=== PATIENT | male | born 1950 | race Caucasian/White ===

== ENCOUNTER → 2017-02-06 10:22 | Outpatient (CLI) | payer MEDICARE, OTHER ==
[2015-07-08 08:33] VITALS: BMI 32.8
[~2017-02-06 10:22] MED LIST: BAYER CHEWABLE81 MG PO; LIPITOR20 MG PO; MOBIC7.5 MG PO; MULTI-DAY VITAM1 TAB PO; SOMA350 MG PO; ULTRAM50 MG PO
== END | disposition home or self-care (01) ==
LOC: D.RAD 10:22
DX: M25.512 Pain in left shoulder (principal)

== ENCOUNTER 2017-03-08 05:30 | Day surgery (SDC) | payer MEDICARE, OTHER ==
[2017-03-07 11:40] LABS: HEMATOCRIT 47.9 % (42.0-54.0); HEMOGLOBIN 16.4 g/dL (13.5-17.5); MCH 32.9 pg (26.0-34.0); MCHC 34.2 g/dL (31.0-37.0); MEAN PLATELET VOLUME 11.1 fL (7.4-10.4); RBC 4.99 10x6/uL (4.20-6.10); RDW 13.1 % (11.5-14.5); WBC 7.2 10x3/uL (4.8-10.8)
[2017-03-07 11:58] LABS: ANION GAP 12.2 mmol/L (8-16); CALCIUM 9.6 mg/dL (8.5-10.1); CREATININE - SERUM 1.4 mg/dL (0.6-1.3); POTASSIUM - SERUM 4.2 mmol/L (3.5-5.1)
[~2017-03-08] VITALS: Ht 180.3 cm; Wt 98.9 kg
[~2017-03-08 05:30] MED LIST changes: +GLUCOPHAGE850 MG PO; +ROBAXIN500 MG PO; +TESTOSTERON200 MG/ML IM
[2017-03-08] MEDS ORDERED: ULTRAM50 MG PO (06:56)
[2017-03-08] MEDS ORDERED: HYDROCODONE-APA1 TAB PO (06:57)
[2017-03-08 07:00] VITALS: BP 150/96; Ht 180.3 cm; Wt 98.9 kg
--- NOTE | 2017-03-08 11:33 | NUR ---
1045 IV DC WITH CATHER TIP INTACT,W/O REDNESS AT SITE
--- NOTE | 2017-03-09 10:59 | OP ---
PATIENT NAME: NICA OHARA MEDICAL RECORD: [id number] :50 LOCATION:[facility] ADMISSION DATE: SURGEON: PAULINO NEW, TANA ANDERSON DATE OF OPERATION: 03/08/2017 PREOPERATIVE DIAGNOSES: Rotator cuff tear of the left shoulder with impingement syndrome of the left shoulder, clavicular arthritis of the left shoulder. POSTOPERATIVE DIAGNOSES: Rotator cuff tear of the left shoulder with impingement syndrome of the left shoulder, clavicular arthritis of the left shoulder. PROCEDURE: 1. Left shoulder arthroscopy with arthroscopic rotator cuff repair. 2. Arthroscopic distal clavicle excision. 3. Arthroscopic subacromial decompression, acromioplasty and bursectomy. SURGEON: Tana Bob MD ANESTHESIA: General. INTRAOPERATIVE COMPLICATIONS: None. SUMMARY OF PATHOLOGIC FINDINGS: Consistent with the preoperative MRI. The patient had full thickness rotator cuff tear, biceps tendinitis and acromioclavicular arthritis and a type 3 acromion with impingement excoriation of the coracoacromial ligament. OPERATIVE SUMMARY IN DETAIL: After obtaining the appropriate preoperative orthopedic surgery consent as well as anesthetic consultation, evaluation and clearance, the patient was brought to the operating room and placed on the operating table in supine position. After general laryngeal mask was administered, the patient was placed in a right lateral decubitus position. All pressure points were well padded to include down leg peroneal pad as well as axillary roll. The patient was held firmly to the operating room table using the vacuum pack suction system. Left upper extremity and shoulder were then prepped and draped in routine sterile fashion. The arm was held in the Arthrex traction boom at 30 degrees of forward flexion, 30 degrees of abduction, 10 pounds of traction laterally. Arthroscopy was established in the glenohumeral joint from a posterior portal. Anterior portal was established in the anterior safe interval. Diagnostic arthroscopy did reveal the above findings. Attention was turned to the subacromial space. [place] tissue ablation system was utilized to denude the undersurface of the acromion of all soft tissue elements and released coracoacromial ligament. A 5-0 barrel bur was used to perform acromioplasty at the level of acromioclavicular joint through a separate arthroscopic. Anterior portal, distal clavicle was excised for 1 cm. Having completed this, attention was turned to the rotator cuff tear. The area in the supraspinatus tendinous footprint on the greater tuberosity was decorticated slightly. A single #2 inverted FiberTape was passed and anchored laterally with a 5.5 SwiveLock from Arthrex. Having completed this, arthroscopy portals were closed in routine interrupted fashion using 4-0 Prolene. Sterile dressings were applied. The patient was awakened, taken to recovery in stable condition. All final needle and sponge counts were correct. TRANSINT:[id number] Voice Confirmation ID: [id number] DOCUMENT ID: [id number] OPERATIVE REPORT [id number] NICA OHARA MD, TANA ANDERSON at 1059 CC: [id number] DICTATION DATE: 03/08/17 0940 MANAGER POKER: 03/08/17 1050 [facility] 03/08/17 [facility] [address] [place] [address]
== END 2017-03-08 11:30 | disposition home or self-care (01) ==
LOC: D.OPS 05:30 → D.PAN 13:30 → D.OPS 13:45 → D.PAN 13:45
PROVIDERS: Anesthesiology
DX: M75.102 Unspecified rotator cuff tear or rupture of left shoulder, not specified as traumatic (principal); M75.42 Impingement syndrome of left shoulder; M19.012 Primary osteoarthritis, left shoulder; E11.9 Type 2 diabetes mellitus without complications; Z01.812 Encounter for preprocedural laboratory examination

== ENCOUNTER 2019-01-01 20:37 | Inpatient (IN) | payer MEDICARE ==
[~2019-01-01] VITALS: Ht 180.3 cm; Wt 100.0 kg
--- NOTE | ~2019-01-01 | EC ---
PATIENT:NICA OHARA DATE OF SERVICE: 01/01/19 SEX: M MEDICAL RECORD: [id number] DATE OF : 50 LOCATION:D.M2 D.212 AGE OF PATIENT: 68 ADMISSION DATE: 01/01/19 REFERRING PHYSICIAN: INTERPRETING PHYSICIAN: FRANCY NAYLOR MD ECHOCARDIOGRAM REPORT ECHO CHARGES 4 ECHO COMPLETE Date: 01/02/19 CLINICAL DIAGNOSIS: [place] ECHOCARDIOGRAPHIC MEASUREMENTS (adult normal given) AC root (d.<3.7cm) 4.0 cm LV Septum d (<1.2 cm> 1.4 cm Valve Excursion 2.0 cm LV Septum (systole) 2.3 cm Left Atria (s.<4.0cm> 2.7 cm LVPW d(<1.2cm) 1.3 cm RV (d.<2.3cm) 2.0 cm LVPW (sytole) 2.3 cm LV diastole(<5.6CM) 5.0 cm MV E-F(>70mm/sec) cm LV systole 2.2 cm LVOT Diameter 2.0 cm MV exc.(>10mm) cm Est.ejection fraction (50-75%) % DOPPLER: LVIT cm/sec A 100 cm/sec E 90.0 cm/sec LA cm/sec RVSP 18.0 mmHg LVOT 120 cm/sec AOP1/2T m/s Asc. Ao 134 cm/sec RVOT 104 cm/sec RA cm/sec PA 83.0 cm/sec AV Gradient Peak 7.2 mmHg AV Mean 3.6 mmHg AV Area 3.0 cm MV Gradient Peak 4.9 mmHg MV Mean 2.0 mmHg MV Area cm COMMENTS: Yarder Boss: Krunal VILLANUEVAOE Strip Feeder: 1 Dr. Naylor TAPE# PACS Pericardial Effusion N DATE OF SERVICE: 01/02/2019 PROCEDURE: Echocardiogram. FINDINGS: 1. Left ventricular chamber size is within normal limits. Left ventricular systolic function is normal. Overall ejection fraction estimated at 60%. 2. Left atrium, right atrium, right ventricle chamber size is within normal limits. 3. Valvular structures have normal structure and motion. ECHOCARDIOGRAM REPORT [id number] NICA OHARA 4. Doppler interrogation reveals no significant valvular insufficiency or stenosis. 5. No evidence of pericardial effusion or left ventricular thrombus. TRANSINT:[id number] Voice Confirmation ID: [id number] DOCUMENT ID: [id number] FRANCY NAYLOR MD CC: [id number] DICTATION DATE: 01/03/19823 HOISTER: 01/03/19836 ADM IN [facility] [address] [id number]
--- NOTE | ~2019-01-01 | OP ---
PATIENT NAME: NICA OHARA MEDICAL RECORD: [id number] :50 LOCATION:D.M2 D.0 ADMISSION DATE:01/01/19 SURGEON: FRANCY TORO MD DATE OF OPERATION: 01/02/2019 PROCEDURES: 1. PTCA and stent, LAD. 2. Left heart catheterization. 3. Selective coronary angiography. 4. Left ventriculogram. INDICATION: Non-Q-wave myocardial infarction. PROCEDURE IN DETAIL: After informed consent was obtained with detailed description of risks and benefits as well as alternative therapies, the patient elected to proceed with angiogram and angioplasty. The right radial area was prepped and draped in normal sterile fashion. The right radial artery was cannulated via modified Seldinger technique with placement of 6-[place] sheath. All catheters were exchanged through this sheath. FINDINGS: Left ventriculogram performed in standard 30-degree JENKINS view reveals preserved cardiac wall motion. Ejection fraction is 50%. SELECTIVE CORONARY ANGIOGRAPHY: 1. Left main is with no significant angiographic disease. 2. Left circumflex has 85% to 90% stenosis proximally. 3. Left anterior descending has multiple areas of 99% stenosis throughout the entire mid vessel. 4. Right coronary has 90% to 95% stenosis times 2 distally. At this point, we consulted Dr. Gilbert. He agreed that the LAD was the culprit vessel for the non-Q-wave myocardial infarction, but did not think it was bypassable secondary to the extensive nature of the disease and the distal extension of the disease, hence PTCA and stent would be the best option if possible. We were able to traverse the areas of stenosis with a Fielder wire and ballooned it with 1.5 and 2.0 balloons. Stenting was undertaken distal to proximal with 2.0 x 26 [place], 2.0 x 26 [place], and 2.25 x 38 [place]. Result was 0% residual stenosis. OVERALL IMPRESSION: Successful PTCA and stents of the LAD, going from 99% initial stenosis in multiple areas to 0% residual stenosis. TRANSINT:[id number] Voice Confirmation ID: [id number] DOCUMENT ID: [id number] FRANCY TORO MD CC: [id number] DICTATION DATE: 01/02/19 1220 SKIN CARE CONSULTANT: 01/02/19 1500 [place] [address]
--- NOTE | ~2019-01-01 | HEMODYNAMI ---
PATIENT:NICA OHARA MEDICAL RECORD: [id number] : 50 LOCATION:[facility] D.2120 ADMISSION DATE: 01/01/19 Generatedon:01/02/201912:16 Patient name: NICA OHARA Patient #: [id number] SSN: : 1950 Date of study: 01/02/2019 Page: Of Hemodynamic Procedure Report Patient Data Patient Demographics Procedure consent was obtained First Name: NICA Gender: Male Last Name: LEV : 1950 [facility] Initial: L Age: 68 year(s) Patient #: [id number] Race: Unknown Additional ID: [id number] Contact details Address: [address] [place] [address] ROAD State: [place] City: [place] Zip code: [address] Past Medical History Allergies Allergen Reaction Date Comments Reported Other allergy 01/02/2019 IODINATED CONTRAST Admission Admission Data Admission Date: 01/01/2019 Admission Time: 22:42 Room #: .[facility]0 Weight (lbs.): 220.46 Weight (kg.): 100 Lab Results Lab Result Date: 01/02/2019 Lab Result Time: 0:00 Biochemistry Name Units Result Min Max BUN mg/dl 37 --(----)-* 7 18 Creatinine mg/dl 2.4 --(----)-* 0.6 1.3 eGFR ml/min 29 *-(----)-- 90 120 NONAFRICAN CBC Name Units Result Min Max Hematocrit % 38.4 *-(----)-- 42 54 Hemoglobin g/dl 13 -*(----)-- 13.5 17.5 Procedure Procedure Types Cath Procedure Diagnostic Procedure C [facility] w/Coronaries PCI Procedure Coronary Stent Coronary Stent Initial Procedure Description Procedure Date Procedure Date: 01/02/2019 Procedure Start Time: 11:39 Procedure End Time: 12:14 Procedure Staff Name Function Noble Naylor MD Performing Physician Rico Tapia RT Monitor Zarina Jones RT Scrub Pierce Gardner RN Nurse Procedure Data Cath Procedure Fluoroscopy Diagnostic fluoroscopy Total fluoroscopy Time: time: 13.3 min 13.3 min Diagnostic fluoroscopy Total fluoroscopy dose: dose: 2040 mGy 2040 mGy Contrast Material Contrast Material Type Amount (ml) Isovue 370 159 Entry Location Entry Primary Successful Side Size Upsize Upsize Entry Closure Vasquez ccessful Closure Location (Fr) 1 (Fr) 2 (Fr) Remarks Device Remarks Radial Right 6 Fr Mechanical artery Short Compression Estimated blood loss: 10 ml Diagnostic catheters Device Type Used For End Catheter Placement DIAGNOSTIC Carney 110cm 5 Procedure Fr catheter ([id number]) Procedure Complications No complications Procedure Medications Medication Administration Route Dosage Oxygen etCO2 Nasal cannula 2 l/min Lidocaine 2% added to field 20 Heparin Flush Bag added to field 2 bags (1000units/500ml NS) 0.9% NaCl I.V. 100 ml/hr Radial Cocktail I.A. 1 syringe (Verapamil 2mg/Nitro 400mcg/Heparin 1500units) Versed I.V. 1 mg Fentanyl I.V. 50 mcg Versed I.V. 1 mg Fentanyl I.V. 50 mcg Heparin Bolus I.V. 4000 units Versed I.V. 1 mg Versed I.V. 1 mg Versed I.V. 1 mg Fentanyl I.V. 50 mcg Versed I.V. 1 mg Plavix P.O. 75 mg Hemodynamics Rest Heart Rate: 71 (bpm) Pressure Samples Time Site Value (mmHg) Purpose Heart Use Rate(bpm) 11:42 AO 99/67(84) Snapshot 83 Snapshots Pre Cath Intra NCS Post Cath Vital Signs Time Heart Resp SPO2 etCO2 NIBP (mmHg) Rhythm Pain Sedation Rate (ipm) (%) (mmHg) Status Level (bpm) 11:35:01 68 13 99 30.7 186/115(163) NSR 0 (11) 10(A) , No pain 11:39:21 81 16 96 24 185/115(139) NSR 0 (11) 10(A) , No pain 11:43:46 82 10 95 9.7 135/81(105) NSR 0 (11) 10(A) , No pain 11:47:49 79 12 95 16.5 151/90(113) NSR 0 (11) 9(A) , No pain 11:51:59 80 15 96 0 158/87(124) NSR 0 (11) 9(A) , No pain 11:56:11 79 11 96 18.7 155/92(129) NSR 0 (11) 9(A) , No pain 12:00:21 80 17 96 30.7 160/98(137) NSR 0 (11) 9(A) , No pain 12:04:33 81 17 98 29.2 166/100(124) NSR 0 (11) 9(A) , No pain 12:08:47 82 15 97 32.2 170/95(139) NSR 0 (11) 9(A) , No pain 12:13:03 81 14 97 18.7 164/98(121) NSR 0 (11) 10(A) , No pain Medications Time Medication Route Dose Verified Delivered Reason Not es Effectiveness by by 11:33:31 Oxygen etCO2 2 l/min Noble Clevelandie used for Nasal Cyndy Gardner RN procedure cannula 11:33:37 Lidocaine 2% added 20ml Noblestacey Dickey for local to vial Cyndy Naylor MD anesthetic field 11:33:44 Heparin Flush added 2 bags Noble Dickey used for Bag to Cyndy Naylor MD procedure (1000units/500ml field NS) 11:33:53 0.9% NaCl I.V. 100 Noble Pelayo Per physician ml/hr Cyndy Gardner RN 11:38:23 Versed I.V. 1 mg Noble Clevelandie for sedation Cyndy Gardner RN 11:38:29 Fentanyl I.V. 50 mcg Noble Clevelandie for sedation Cyndy Gardner RN 11:41:28 Radial Cocktail I.A. 1 Noble Noble for (Verapamil syringe Cyndy Naylor MD vasodilation 2mg/Nitro 400mcg/Heparin 1500units) 11:43:18 Versed I.V. 1 mg Noble Buffie for sedation Cyndy Gardner RN 11:43:21 Fentanyl I.V. 50 mcg Noble Buffie for sedation Cyndy Gardner RN 11:46:33 Heparin Bolus I.V. 4000 Noble Buffie for annia ified units Cyndy Gardner RN anticoagulation with dr naylor 11:55:28 Versed I.V. 1 mg Noble Buffie for sedation Cyndy Gardner RN 11:57:53 Versed I.V. 1 mg Noble Buffie for sedation Cyndy Gardner RN 12:04:50 Versed I.V. 1 mg Noble Pealyo for sedation Cyndy Gardner RN 12:04:53 Fentanyl I.V. 50 mcg Noble Pelayo for sedation Cyndy Gardner RN 12:08:34 Versed I.V. 1 mg Noble Pelayo for sedation Cyndy Gardner RN 12:13:35 Plavix P.O. 75 mg Noble Pelayo for Cyndy Gardner RN antiplatelet therapy Procedure Log Time Note 10:54:27 Signed procedure consent form obtained from patient. 10:54:28 Diagnostic Cath status Urgent 10:54:29 Time tracking: Regular hours (M-F 7:00 - 5:00) 10:54:32 Plan of Care:Hemodynamics will remain stable., Cardiac rhythm will remain stable., Comfort level will be maintained., Respiratory function will remain adequate., Patient/ family verbilizes understanding of procedure., Procedure tolerated without complication., Recovers from procedure without complications.. 10:54:35 Rico JOHNSON(R) sent for patient. Start room use. 11:06:07 Patient allergic to Other allergyIODINATED CONTRAST 11:06:13 Is the patient allergic to Iodine/contrast media? Yes. 11:06:16 Was the patient premedicated? Yes 11:07:01 Lab Result : Creatinine 2.4 mg/dl 11:07:01 Lab Result : BUN 37 mg/dl 11:07:01 Lab Result : eGFR NONAFRICAN 29 ml/min 11:07:01 Lab Result : Hemoglobin 13 g/dl 11:07:01 Lab Result : Hematocrit 38.4 % 11:08:18 Patient Weight : 220.46 lbs 11:22:03 Patient received from Med II to CCL 1 Alert and oriented. Tansferred to table in Supine position. 11:22:05 Warm blankets applied, and chase hugger turned on for patient comfort. 11:22:05 Correct patient and procedure confirmed by team. 11:22:06 ECG and BP/O2 sat monitors applied to patient. 11:33:31 Oxygen 2 l/min etCO2 Nasal cannula was administered by Pierce Gardner RN; used for procedure; 11:33:37 Lidocaine 2% 20ml vial added to field was administered by Noble Naylor MD; for local anesthetic; 11:33:44 Heparin Flush Bag (1000units/500ml NS) 2 bags added to field was administered by Noble Naylor MD; used for procedure; 11:33:53 0.9% NaCl 100 ml/hr I.V. was administered by Pierce Gardner RN; Per physician; 11:33:56 Vital chart was started 11:34:42 Baseline sample Acquired. 11:34:45 Rhythm: sinus rhythm 11:34:52 Full Disclosure recording started 11:34:56 H&P Date Dictated: 01/02/2019 Within 30 days and on chart.. 11:34:57 Pre-procedure instructions explained to patient. 11:34:57 Pre-op teaching completed and patient verbalized understanding. 11:34:59 Family in patients room. 11:35:01 Is patient on blood thinner?Yes 11:35:03 ACC The patient was administered the following blood thiners within the last 24 hours: ACCPlavix 11:35:05 Patient diabetic? Yes. 11:35:06 If diabetic: On Metformin? No 11:35:08 Previous problem with sedation/anesthesia? No ? 11:35:09 Snore? Yes 11:35:10 Sleep apnea? No 11:35:11 Deviated septum? No 11:35:11 Opens mouth fully? Yes 11:35:12 Sticks out tongue? Yes 11:35:14 Airway obstruction? No ? 11:35:16 Dentures? No ? 11:35:17 Pre procedure: right dorsailis pedis pulse 1+ Palpable, but thready & weak; easily obliterated 11:35:19 Modified Hieu's test Ulnar < 7 seconds 11:35:21 Patient pain scale 0/10 ?. 11:35:33 IV patent on arrival in left antecubital with 0.9% NaCl at KVO. 11:35:35 Lab results completed and on chart. 11:35:40 Right Radial & Right Groin area was prepped with chlora-prep and draped in sterile fashion 11:35:42 Alarms reviewed by R. N. 11:35:42 Sharps counted by scrub and verified by R.N. 11:35:45 Physician paged 11:35:48 Use device set Radial Dx or PCI 11:35:50 Tegaderm 4 x 4 (1626W) opened to sterile field. 11:35:51 ACIST Manifold (89885) opened to sterile field. 11:35:51 ACIST Hand Control (67541) opened to sterile field. 11:35:52 ACIST Syringe (60500) opened to sterile field. 11:35:53 Medline Cath Pack ([id number]) opened to sterile field. 11:35:53 Bag Decanter () opened to sterile field. 11:35:56 EMERALD Guide Wire (622-914) opened to sterile field. 11:35:56 SHEATH 6FR Slender (80-6810) opened to sterile field. 11:35:58 MBrace Wrist Support ([id number]) opened to sterile field. 11:37:40 --------ALL STOP TIME OUT------ 11:37:40 Final Timeout: patient, procedure, and site verified with staff and physician. All members of the team are in agreement. 11:37:42 Right Radial & Right Groin site verified by team. 11:37:46 Fire Safety Assessment: A--An alcohol-based skin anteseptic being used preoperatively., C--Open oxygen or nitrous oxide is being used., D--An ESU, laser, or fiber-optic light is being used. 11:37:49 Physical assessment completed. ASA score P 2 - A patient with mild systemic disease as per Noble Naylor MD. 11:37:56 4) 15-29 Severley reduced kidney function. 11:37:59 Maximum allowable contrast does (3.7 X eGFR X 0.75)80 ml. 11:38:03 Sedation plan: IV Moderate Sedation Medication:Versed, Fentanyl 11:38:23 Versed 1 mg I.V. was administered by Pierce Gardner RN; for sedation; 11:38:29 Fentanyl 50 mcg I.V. was administered by Pierce Gardner RN; for sedation; 11:39:17 Zero performed for pressure channel P1 11:39:51 Procedure started. 11:39:57 Local anesthetic to right radial artery with Lidocaine 2% by Noble Naylor MD.INITIAL ACCESS ONLY 11:40:56 A 6 Fr Short sheath was inserted into the Right Radial artery 11:41:28 Radial Cocktail (Verapamil 2mg/Nitro 400mcg/Heparin 1500units) 1 syringe I.A. was administered by Noble Naylor MD; for vasodilation; 11:41:35 A DIAGNOSTIC Carney 110cm 5 Fr catheter ([id number]) was advanced over the wire and used for Procedure. 11:42:10 LV angiography performed. 11:42:11 LV gram done using JENKINS 11:42:26 EF : 60 % 11:42:51 Injector settings: Ml/sec: 7, Volume: 15, 11:42:55 LCA angiography performed. 11:43:18 Versed 1 mg I.V. was administered by Pierce Gardner RN; for sedation; 11:43:21 Fentanyl 50 mcg I.V. was administered by Pierce Gardner RN; for sedation; 11:43:27 Use device set [facility] PCI 11:43:37 CHOICE PT Extra Support 182cm wire ([id number]) opened to sterile field. 11:43:38 INFLATOR Merit BasixCompak (EF1604) opened to sterile field. 11:43:56 RCA angiography performed. 11:44:26 Catheter exchanged over wire. 11:44:36 GUIDE 6FR XBLAD 4.0 catheter ([id number]) opened to sterile field. 11:45:49 6 Fr XBLAD 4 guide catheter was inserted over the wire 11:46:07 Pre PCI Site: [place] mLAD has 99% stenosis. 11:46:33 Heparin Bolus 4000 units I.V. was administered by Pierce Gardner RN; for anticoagulation; verified with dr naylor 11:47:10 CPTXS wire advanced. 11:50:12 Quick Combo opened to sterile field. 11:50:13 FIELDER XT 190cm guidewire ([id number]) opened to sterile field. 11:50:53 Quick Combo pads placed on pt's mid chest and left side. 11:52:04 FIELDER 190 wire advanced. 11:52:17 Wire advanced across lesion. 11:55:28 Versed 1 mg I.V. was administered by Pierce Gardner RN; for sedation; 11:56:11 Balloon removed. unable to cross lesion. 11:56:51 Inflate balloon Inflation number: 1 A EUPHORA 1.5 x 20 Balloon ([id number]) was prepped and advanced across the Mid LAD 99, then inflated to 21 HELLEN for 0:10 (min:sec) . 11:57:30 Multiple inflations made at 21 Atms. 11:57:53 Versed 1 mg I.V. was administered by Pierce Gardner RN; for sedation; 11:58:33 Balloon removed over the wire. 11:59:41 Inflate balloon Inflation number: 2 A EUPHORA 2.0 x 25 Balloon ([id number]) was prepped and advanced across the Dist LAD 100, then inflated to 13 HELLEN for 0:10 (min:sec) . 12:00:17 Multiple inflations made at 13 Atms. 12:00:31 Balloon removed over the wire. 12:02:25 Place stent Inflation Number: 2 A KAYLEY RX 2.0 x 26 stent ([id number]) was prepped and advanced across the Dist LAD 100. The stent was deployed at 13 HELLEN for 0:10 (min:sec) 0. 12:02:49 Inflation number: 3 The stent balloon was then re-inflated across the Dist LAD 100 to 21 HELLEN for 0:10 (min:sec) . 12:03:03 Inflation number: 2 The stent balloon was then re-inflated across the Mid LAD 99 to 15 HELLEN for 0:10 (min:sec) . 12:03:29 Inflation number: 3 The stent balloon was then re-inflated across the Mid LAD 99 to 15 HELLEN for 0:10 (min:sec) . 12:04:40 Stent catheter was removed intact over wire. 12:04:50 Versed 1 mg I.V. was administered by Pierce Gardner RN; for sedation; 12:04:53 Fentanyl 50 mcg I.V. was administered by Pierce Gardner RN; for sedation; 12:05:03 Place stent Inflation Number: 4 A KAYLEY RX 2.0 x 26 stent ([id number]) was prepped and advanced across the Dist LAD 100. The stent was deployed at 17 HELLEN for 0:10 (min:sec) 0. 12:05:28 Stent catheter was removed intact over wire. 12:06:41 Place stent Inflation Number: 4 A KAYLEY RX 2.25 x 38 stent ([id number]) was prepped and advanced across the Mid LAD 99. The stent was deployed at 21 HELLEN for 0:10 (min:sec) 0. 12:08:34 Versed 1 mg I.V. was administered by Pierce Gardner RN; for sedation; 12:08:50 Stent catheter was removed intact over wire. 12:09:19 Wire removed. 12:09:20 Guide catheter removed. 12:09:42 TR BAND Standard ([id number]) opened to sterile field. 12:09:55 Sheath removed intact; hemostasis achieved with Mechanical Compression to the Right Radial artery. 12:09:58 Procedure ended.(Physican Out) 12:11:59 Fluoroscopy time 13.30 minutes. 12:12:03 Fluoroscopy dose: 2040 mGy 12:12:03 Flurop Dose total: 2040 12:12:10 Contrast amount:Isovue 370 159ml. 12:12:11 Sharps counted by scrub and verified by R.N. 12:12:14 TR band inflated with 12cc of air. 12:12:15 Insertion/operative site no bleeding no hematoma. 12:12:18 Post Procedure Pulses reassessed and unchanged 12:12:23 Post-procedure physical assessment completed. ASA score P 2 - A patient with mild systemic disease as per Noble Naylor MD. 12:12:26 Post procedure rhythm: unchanged. 12:12:29 Estimated blood loss: 10 ml 12:12:31 Post procedure instruction explained to patient.Patient verbalizes understanding. 12:12:31 Patient needs reinforcement of post procedure teaching. 12:13:23 Procedure type changed to Cath procedure, Diagnostic procedure, LHC, LHC w/Coronaries, PCI procedure, Coronary Stent, Coronary Stent Initial 12:13:26 Procedure and supply charges have been captured, reviewed, submitted and are correct. 12:13:30 Procedure Complication : No complications 12:13:35 Plavix 75 mg P.O. was administered by Pierce Gardner RN; for antiplatelet therapy; 12:14:28 Vital chart was stopped 12:14:28 See physician's report for complete and final results. 12:14:30 Report given to PCU. 12:14:33 Patient transfered to PCU with Bed. 12:14:36 Procedure ended. 12:14:36 Full Disclosure recording stopped 12:15:30 End room use (Document Last) Intervention Summary Intervention Notes Time ActionType Lesion and Equipment Used Action# Pressure Duration Attributes 11:56:51 Inflate Mid LAD EUPHORA 1.5 x 1 21 00:10 balloon 20 Balloon ([id number]) 11:59:41 Inflate Dist LAD EUPHORA 2.0 x 2 13 00:10 balloon 25 Balloon ([id number]) 12:02:25 Place stent Dist LAD KAYLEY RX 2.0 x 2 13 00:10 26 stent ([id number]) 12:02:49 Reinflate Dist LAD KAYLEY RX 2.0 x 3 21 00:10 stent 26 stent balloon ([id number]) 12:03:03 Reinflate Mid LAD KAYLEY RX 2.0 x 2 15 00:10 stent 26 stent balloon ([id number]) 12:03:29 Reinflate Mid LAD KAYLEY RX 2.0 x 3 15 00:10 stent 26 stent balloon ([id number]) 12:05:03 Place stent Dist LAD KAYLEY RX 2.0 x 4 17 00:10 26 stent ([id number]) 12:06:41 Place stent Mid LAD KAYLEY RX 2.25 x 4 21 00:10 38 stent ([id number]) Device Usage Item Name Manufacture Quantity Catalog Number Hospital Part Current M inimal Lot# / Charge Number Stock Stock Serial# Code Tegaderm 4 x 4 3M 1 1626W 984154 906832 920469 5 (1626W) ACIST Manifold Acist 1 50029 968429 428967 189171 5 (73163) Medical Systems Inc ACIST Hand Acist 1 28599 772563 113640 083479 5 Control Medical (03047) Systems Inc ACIST Syringe Acist 1 95399 390442 594082 733971 2 0 (64817) Medical Systems Inc Medline Cath Medline 1 [id number] 236343 68810 648324 5 Pack ([id number]) Bag Decanter Microtek 1 166233 19646 799501 5 (2001S) Medical Inc. EMERALD Guide Cardinal 1 502-455 228834 189210 442938 5 Wire (679-255) Health SHEATH 6FR Terumo 1 [id number] 922492 331769 399960 5 Slender (80-1060) MBrace Wrist Advanced 1 140-0250-00 909065 30180 468454 5 Support Vascular (150946829) Dynamics DIAGNOSTIC Terumo 1 40-6952 054015 322994 664607 5 Carney 110cm 5 Fr catheter (698652) CHOICE PT Uneeda 1 [id number] 388350 372608 315417 5 Extra Support Scientific 182cm wire (1499665R5) INFLATOR Merit Merit 1 DD0784 600110 998072 984175 1 5 Arbsource Medical (DQ7365) GUIDE 6FR Cardinal 1 60074925 487087 277029 400278 3 XBLAD 4.0 Health catheter (92171120) TermSync Systems 1 63792-374143 302981 772527 622791 5 FIELDER XT Guzman 1 [id number] 758056 96592 983085 5 190cm Vascular guidewire ([id number]) EUPHORA 1.5 x Medtronic 1 [id number] 191498 149231 757119 5 [id number] 20 Balloon ([id number]) EUPHORA 2.0 x Medtronic 1 [id number] 516502 440079 572846 5 [id number] 25 Balloon ([id number]) KAYLEY RX 2.0 x Medtronic 2 [id number] 582485 9364882 899611 5 [id number] 26 stent [id number] ([id number]) KAYLEY RX 2.25 x Medtronic 1 [id number] 399083 7681261 546317 5 [id number] 38 stent ([id number]) TR BAND Terumo 1 [id number] 762093 560174 092309 4 0 Standard ([id number]) Signature Audit [place] Stage Time Signature Unsigned Intra-Procedure 01/02/2019 Rico Tapia 12:16:19 PM RT(R) Signatures Monitor : Rico Tapia RT Signature : Date : Time : [facility] [address], [place] [address]
--- NOTE | ~2019-01-01 | DS ---
PATIENT:NICA OHARA :50 MEDICAL RECORD: [id number] DISCHARGE SUMMARY ADMISSION DATE: 01/01/19 DISCHARGE DATE: DATE OF SERVICE: 01/03/2019 DIAGNOSES: 1. Non-Q-wave myocardial infarction. 2. Coronary artery disease. 3. Percutaneous transluminal coronary angioplasty stent left anterior descending this admission. 4. Hypertension. 5. Hyperlipidemia. HOSPITAL COURSE: Mr. Ohara presents with a non-Q-wave myocardial infarction, found to have severe 3-vessel coronary artery disease, underwent PTCA stent of the LAD, was discharged home with the addition of aspirin, Plavix, Pravachol, Norvasc to his medical regimen. Beta dhruv was not undertaken secondary to resting bradycardia. He will return to see for PTCA stent of circumflex and RCA. TRANSINT:[id number] Voice Confirmation ID: [id number] DOCUMENT ID: [id number] FRANCY TORO MD CC: [id number] DICTATION DATE: 01/03/1934 ASSISTANT WOMEN'S TENNIS COACH: 01/03/19 0839 ADM IN [place] [id number] [place] [id number]
[~2019-01-01 20:37] MED LIST changes: +HYDROCODONE-APA1 TAB PO
[2019-01-01] MEDS ORDERED: FLOMAX0.4 MG PO (20:46)
[2019-01-01] MEDS ORDERED: ANDROGEL5 GM TP (20:47)
[2019-01-01 21:00] VITALS: BP 119/66
[2019-01-01 21:04] LABS: BASOPHILS 0.4 % (0-2); EOSINOPHILS 2.7 % (0-7); HEMATOCRIT 35.5 % (42.0-54.0); HEMOGLOBIN 11.9 g/dL (13.5-17.5); IMMATURE GRANULOCYTES 0.2 % (0-5); LYMPHOCYTES 24.3 % (15-50); MCH 30.3 pg (26.0-34.0); MCHC 33.5 g/dL (31.0-37.0); MCV 90.3 fL (80.0-100.0); MEAN PLATELET VOLUME 10.9 fL (7.4-10.4); MONOCYTES 10.1 % (2-11); NEUTROPHILS 62.3 % (40-80); PLATELET COUNT 160 10x3/uL (130-400); RBC 3.93 10x6/uL (4.20-6.10); RDW 13.8 % (11.5-14.5); WBC 5.6 10x3/uL (4.8-10.8)
[2019-01-01 21:07] LABS: APTT 23.4 SECONDS (22.8-39.4); INR 1.05 (0.85-1.17); PROTIME 13.3 SECONDS (11.6-15.0)
[2019-01-01 21:16] LABS: ALBUMIN 3.3 g/dL (3.4-5.0); ALKALINE PHOSPHATASE 96 U/L (46-116); ALT (SGPT) 27 U/L (10-68); BILIRUBIN - TOTAL 0.25 mg/dL (0.2-1.3); CALC OSMOLALITY 298 mosm/kg (275-300); CALCIUM 9.7 mg/dL (8.5-10.1); CARBON DIOXIDE 26.7 mmol/L (21.0-32.0); CHLORIDE - SERUM 105 mmol/L (98-107); CREATININE - SERUM 2.8 mg/dL (0.6-1.3); POTASSIUM - SERUM 4.2 mmol/L (3.5-5.1); PROTEIN - SERUM 6.7 g/dL (6.4-8.2); SODIUM 141 mmol/L (136-145); UREA NITROGEN 38 mg/dL (7-18); eGFR NON AFRICAN AMERICAN 24 mL/min (90-120)
[2019-01-01 21:20] LABS: GLUCOSE 253 mg/dL (74-106)
[2019-01-01 21:28] LABS: CKMB 1.1 U/L (0.0-3.6); CREATINE KINASE 116 UL (21-232); MAGNESIUM - SERUM 1.9 mg/dL (1.8-2.4)
[2019-01-01 21:36] LABS: TROPONIN-I 0.098 ng/mL (0.000-0.060)
[2019-01-02 02:45] VITALS: BP 143/72; Ht 180.3 cm; Wt 100.0 kg
--- NOTE | 2019-01-02 07:09 | NUR ---
REPORT RECEIVED. WILL CONTINUE WITH POC. PT IS AAO AND UP AD ALLEGRA. CALL LIGHT W/I REACH. 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 FAMILY AT BEDSIDE. RR EVEN AND UNLABORED ON RA. NS INFUSING @100ML/HR VIA L.AC PIV. PT DENIES ANY NEEDS AT THIS TIME. NO S/S OF DISTRESS NOTED. WILL CTM.
[2019-01-02 07:20] LABS: BASOPHILS 0.6 % (0-2); EOSINOPHILS 3.2 % (0-7); HEMATOCRIT 38.4 % (42.0-54.0); IMMATURE GRANULOCYTES 0.2 % (0-5); LYMPHOCYTES 23.4 % (15-50); MCHC 33.9 g/dL (31.0-37.0); MCV 91.4 fL (80.0-100.0); MEAN PLATELET VOLUME 10.8 fL (7.4-10.4); MONOCYTES 8.3 % (2-11); NEUTROPHILS 64.3 % (40-80); PLATELET COUNT 159 10x3/uL (130-400); RDW 13.9 % (11.5-14.5)
[2019-01-02 07:44] LABS: ANION GAP 12.1 mmol/L (8-16); CALCIUM 10.4 mg/dL (8.5-10.1); CARBON DIOXIDE 28.8 mmol/L (21.0-32.0); CREATININE - SERUM 2.4 mg/dL (0.6-1.3); POTASSIUM - SERUM 3.9 mmol/L (3.5-5.1)
[2019-01-02 07:45] LABS: TROPONIN-I 2.099 ng/mL (0.000-0.060)
[2019-01-02 08:27] VITALS: BP 173/91
--- NOTE | 2019-01-02 11:19 | NUR ---
PREOP MEDICATIONS ADMINISTERED PER APARTMENT MANAGER REQUEST. PT DENIES ANY NEEDS. NS INFUSING @300ML/HR VIA L.AC. NO S/S OF DISTRESS NOTED. WILL CTM.
[2019-01-02 11:51] VITALS: BP 166/80
--- NOTE | 2019-01-02 12:46 | NUR ---
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 RIGHT RAIDAL CATH SITE IS C/D/I. TR BAND IN PLACE. NS INFUSING @100ML/HR VIA L.AC PIV. RR EVEN AND UNLABORED ON 2L 02. VSS AND WNL. PT DENIES ANY NEEDS AT THIS TIME. WILL CTM. NO S/S OF HEMATOMA PRESENT.
--- NOTE | 2019-01-02 14:44 | NUR ---
PT ASSISTED UP TO BATHROOM AND BACK TO BED. NEW LINEN PLACED. NS INFUSING @100ML/HR VIA L.AC PIV. RR EVEN AND UNLABORED ON RA. PT DENIES ANY NEEDS. NO S/S OF HEMATOMA PRESENT IN RIGHT WRIST. WILL CTM.
--- NOTE | 2019-01-02 15:39 | NUR ---
REMOVED 5ML OF AIR FROM TR BAND. NO S/S OF HEMATOMA OR BLEEDING PRESENT. WILL CTM.
[2019-01-02 15:55] VITALS: BP 154/76
--- NOTE | 2019-01-02 15:59 | NUR ---
TR BAND REMOVED. NO S/S OF BLEEDING OR HEMATOMA PRESENT. WILL CTM.
--- NOTE | 2019-01-02 19:10 | NUR ---
AWAKE AND ALERT NO NOTED DISTRESS SKIN WARM AND DRY DRSG TO RT WRIST FROM CATH SITE INTACT WITH NO BRUISING AROUND SITE ...BED IS LOW AND LOCKED CALL LIGHT IS WITH PT.PT ASKED A FEW QUESTIONS AND I ATTEMPTED TO ANSWER THEM
[2019-01-02 20:00] VITALS: BP 134/66
[2019-01-03] VITALS: BP 124/65
--- NOTE | 2019-01-03 01:43 | NUR ---
I have reviewed this patient and I concur with the Shift Assessment completed by the Licensed Practical Nurse today this shift.
[2019-01-03 04:00] VITALS: BP 127/63
[2019-01-03 06:56] LABS: ANION GAP 15.7 mmol/L (8-16); CALCIUM 9.4 mg/dL (8.5-10.1); CARBON DIOXIDE 23.4 mmol/L (21.0-32.0); CREATININE - SERUM 2.5 mg/dL (0.6-1.3); POTASSIUM - SERUM 4.1 mmol/L (3.5-5.1)
[2019-01-03 07:25] LABS: BASOPHILS 0.1 % (0-2); EOSINOPHILS 0 % (0-7); HEMATOCRIT 37.2 % (42.0-54.0); HEMOGLOBIN 12.8 g/dL (13.5-17.5); IMMATURE GRANULOCYTES 0.2 % (0-5); LYMPHOCYTES 8.9 % (15-50); MCHC 34.4 g/dL (31.0-37.0); MCV 90.1 fL (80.0-100.0); MONOCYTES 10.2 % (2-11); NEUTROPHILS 80.6 % (40-80); RBC 4.13 10x6/uL (4.20-6.10); RDW 13.9 % (11.5-14.5)
[2019-01-03 07:31] LABS: PLATELET COUNT 194 10x3/uL (130-400); WBC 10.3 10x3/uL (4.8-10.8)
--- NOTE | 2019-01-03 07:54 | NUR ---
REPORT RECEIVED. WILL CONTINUE WITH POC. PT CURRENTLY UP AND SITTING IN CHAIR. CALL LIGHT W/I REACH. PT IS AAO AND UP AD ALLEGRA. RR EVEN AND UNLABORED ON RA. L.AC PIV IS SALINE LOCKED. PT DENIES ANY NEEDS. NO S/S OF DISTRESS NOTED. WILL CTM.
[2019-01-03 08:38] VITALS: BP 139/71
--- NOTE | 2019-01-03 08:38 | HP ---
PATIENT: NICA OHARA MEDICAL RECORD: [id number] ACCOUNT: [id number] LOCATION:[address] : 50 ADMISSION DATE: 01/01/19 PCP: GRACIE GAONA MD HISTORY AND PHYSICAL EXAMINATION DIAGNOSES: 1. Non-Q-wave myocardial infarction. 2. Coronary artery disease. HISTORY OF PRESENT ILLNESS: This is a gentleman with no previous cardiac history, who presents with chest pain as of last night. He has ST-T changes anteriorly on his EKG with T-wave inversion and slight ST depression. His troponin is positive at 2.1 for a non-Q-wave myocardial infarction. PHYSICAL EXAMINATION: GENERAL APPEARANCE: Well-nourished, well-developed, appears stated age. Level of distress, comfortable. PSYCHIATRIC: Mental status, alert, normal affect. Orientation, oriented to time, place and person. EYES: Lids and conjunctiva, noninjected. No discharge, no pallor. ENT: Lips, teeth, gums, normal dentition. Oropharynx, no cyanosis, no pallor. NECK: Carotid arteries, bilateral normal upstroke, no bruits, no thrills. JUGULAR VEINS: No jugular venous pressure or distention. CERVICAL LYMPH NODES: Nontender, nonenlarged. THYROID: Not enlarged. Nontender. No nodules. LUNGS: Respiratory effort, unlabored. CHEST: Normal curvature. No thoracic deformity. No chest wall tenderness. Percussion, resonant. Auscultation, clear. No wheezes, no rales, no rhonchi. CARDIOVASCULAR: Precordial exam, nondisplaced. No heaves or pericardial thrills. Rate and rhythm, regular. Heart sounds, normal S1, normal S2. No S3, no gallop, no rub. Systolic murmur, not heard. Diastolic murmur, not heard. EXTREMITIES: No cyanosis, no edema. Peripheral pulses, full and equal in all extremities, except as noted. No bruits appreciated. ABDOMEN: Soft, nondistended. Normal aorta. No bruit. Nontender. No masses. Liver, nontender, no hepatomegaly. Spleen, nontender, no splenomegaly. MUSCULOSKELETAL: No joint tenderness. No joint swelling. No erythema. NEUROLOGICAL: Normal gait, normal strength, normal tone. SKIN: Warm and dry. OVERALL IMPRESSION: Non-Q-wave myocardial infarction. We will hydrate. GIVE HIM PREDNISONE AND SOLU-MEDROL DUE TO THE CONTRAST ALLERGY. Proceed with coronary angiography. TRANSINT:[id number] Voice Confirmation ID: [id number] DOCUMENT ID: [id number] HISTORY AND PHYSICAL [id number] NICA OHARA JEFFREY MD at 0838 CC: [id number] DICTATION DATE: 01/02/19827 SAFETY TRAINER: 01/02/19 0836 ADM IN [place] [address] [place] [id number]
--- NOTE | 2019-01-03 11:16 | NUR ---
PT DISCHARGED HOME VIA WHEELCHAIR WITH FAMILY. PIV REMOVED WITH CATHETER TIP FULLY INTACT. TELEMETRY REMOVED AND RETURNED. SCRIPT GIVEN. PT SIGNED PROPER DISCHARGE INSTRUCTION AND REMOVED ALL VALUABLES FROM THE ROOM.
--- NOTE | 2019-01-03 12:27 | MORECARE ---
CASE MANAGEMENT DISCHARGE SUMMARY PATIENT: NICA OHARA UNIT: [id number] ADM DATE: 01/01/19 AGE: 68 : 50 SEX: M ROOM/BED: D.2120 AUTHOR: FARIDA CRUZ PHYSICIAN: REFERRING PHYSICIAN: FRANCY TORO MD DATE OF SERVICE: 01/03/19 Discharge Plan Patient Name: [facility] [facility] 1950 Planned Disposition: Home Anticipated Discharge Date: 01/03/19 Discharge Date: 01/03/2019 Expected LOS: 2 Initial Reviewer: [email or web address] Initial Review Date: 01/03/2019 Generated: 01/03/19 1:26 pm DCPIA - Discharge Planning Initial Assessment Updated by [email or web address]: Salvador Eid on 01/03/19 12:25 pm * Is the patient Alert and Oriented? Yes * How many steps to enter\exit or inside your home? 1-I / 12-O * PCP DR. GAONA * Pharmacy [facility] * Preadmission Environment Home with Family * ADLs Independent * Equipment None * Other Equipment NO MEDICAL EQUIPMENT PROVIDER PREFERENCE * List name and contact numbers for known caregivers / representatives who currently or will assist patient after discharge: JAI OHARA, SPOUSE, * Verbal permission to speak to the caregivers and representatives has been obtained from the patient. Yes * Community resources currently utilized None * Please name any agencies selected above. NONE * Additional services required to return to the preadmission environment? No * Can the patient safely return to the preadmission environment? Yes * Has this patient been hospitalized within the prior 30 days at any hospital? No Patient Name: NICA OHARA Page 58790 at 1227 All edits/amendments must be made on the electronic document DICTATION DATE: 01/03/19 1226 VP AD PRODUCTS AND PLANNING: SLOAN 01/03/19 1226 RPT#: [id number] DC DATE:01/03/19 STATUS: DIS IN [facility] [address] [place] [address] END OF REPORT
--- NOTE | 2019-01-03 12:34 | MORECARE ---
CASE MANAGEMENT DISCHARGE SUMMARY PATIENT: NICA OHARA UNIT: [id number] ADM DATE: 01/01/19 AGE: 68 : 50 SEX: M ROOM/BED: D.6780 AUTHOR: ANTHONY,DOC PHYSICIAN: REFERRING PHYSICIAN: FRANCY TORO MD DATE OF SERVICE: 01/03/19 Discharge Plan Patient Name: NICA OHARA Facility: [facility]:[place] : 1950 Planned Disposition: Home Anticipated Discharge Date: 01/03/19 Discharge Date: 01/03/2019 Expected LOS: 2 Initial Reviewer: [email or web address] Initial Review Date: 01/03/2019 Generated: 01/03/19 1:33 pm Comments DCP- Discharge Planning Updated by [email or web address]: Salvador Eid on 01/03/19 11:[address] Patient Name: NICA OHARA Admission Status: ER Accout number: [id number] Admission Date: 01-01-2019 : 1950 Admission Diagnosis: Attending: JORGE ALBERTO TORO Current LOS: 2 Anticipated DC Date: 01-03-2019 Planned Disposition: Home Primary Insurance: [employer] Discharge Planning Comments: CM MET WITH PT AND SPOUSE IN ROOM TO DISCUSS DISCHARGE PLANNING AND NEEDS. NICA OHARA provided verbal consent to discuss current and ongoing needs with/in the presence of: SPOUSE, JAI. PT REPORTS LIVING AT HOME INDEPENDENTLY WITH HIS . CM DISCUSSED AVAILABILITY OF HOME HEALTH, REHAB SERVICES AND MEDICAL EQUIPMENT. PT DENIES DISCHARGE NEEDS, REPORTS HIS IS HERE TO PICK HIM UP FOR DISCHARGE HOME. Lace Inspector: Salvador Eid DCPIA - Discharge Planning Initial Assessment Updated by [email or web address]: Salvador Eid on 01/03/19 12:25 pm * Is the patient Alert and Oriented? Yes * How many steps to enter\exit or inside your home? 1-I / 12-O * PCP DR. GAONA * Pharmacy [facility] * Preadmission Environment Home with Family * ADLs Independent * Equipment None * Other Equipment NO MEDICAL EQUIPMENT PROVIDER PREFERENCE * List name and contact numbers for known caregivers / representatives who currently or will assist patient after discharge: JAI OHARA, SPOUSE, * Verbal permission to speak to the caregivers and representatives has been obtained from the patient. Yes * Community resources currently utilized None * Please name any agencies selected above. NONE * Additional services required to return to the preadmission environment? No * Can the patient safely return to the preadmission environment? Yes * Has this patient been hospitalized within the prior 30 days at any hospital? No Last DP export: 01/03/19 11:27 am Patient Name: NICA OHARA Page 15498 at 1234 All edits/amendments must be made on the electronic document DICTATION DATE: 01/03/19 1233 CHIPPER OPERATOR: SLOAN 01/03/19 1233 RPT#: [id number] DC DATE:01/03/19 STATUS: DIS IN [facility] [address] [place] [address] END OF REPORT
== END 2019-01-03 11:19 | disposition home or self-care (01) | DRG 247 ==
LOC: D.ER 20:37 → D.M2 22:42
PROVIDERS: Family Medicine; ADMIT Internal Medicine Interventional Cardiology; ATTEND Internal Medicine Interventional Cardiology
PROC: B2111ZZ Fluoroscopy of Multiple Coronary Arteries using Low Osmolar Contrast (ICD-10-PCS; 2019-01-02)
PROC: B2151ZZ Fluoroscopy of Left Heart using Low Osmolar Contrast (ICD-10-PCS; 2019-01-02)
PROC: 027036Z Dilation of Coronary Artery, One Artery with Three Drug-eluting Intraluminal Devices, Percutaneous Approach (ICD-10-PCS; principal; 2019-01-02 10:54)
PROC: 4A023N7 Measurement of Cardiac Sampling and Pressure, Left Heart, Percutaneous Approach (ICD-10-PCS; 2019-01-02 10:54)
DX: I21.4 Non-ST elevation (NSTEMI) myocardial infarction (principal); I25.10 Atherosclerotic heart disease of native coronary artery without angina pectoris; E78.5 Hyperlipidemia, unspecified; I24.9 Acute ischemic heart disease, unspecified; I12.9 Hypertensive chronic kidney disease with stage 1 through stage 4 chronic kidney disease, or unspecified chronic kidney disease; N18.9 Chronic kidney disease, unspecified

== ENCOUNTER 2019-01-07 09:14 | Outpatient (CLI) | payer MEDICARE ==
[~2019-01-07] VITALS: Ht 180.3 cm; Wt 100.0 kg
--- NOTE | ~2019-01-07 | OP ---
PATIENT NAME: NICA OHARA MEDICAL RECORD: [id number] :[birth year] LOCATION:D.CAT ADMISSION DATE: SURGEON: FRANCY TORO MD DATE OF OPERATION: 01/07/2019 DATE OF SERVICE: 01/07/2019 PROCEDURES: 1. PTCA stent RCA. 2. PTCA stent left circumflex. 3. Selective coronary angiography. INDICATION: Non-Q-wave myocardial infarction, angina and coronary artery disease. PROCEDURE IN DETAIL: After informed consent was obtained and after a detailed description of risks, benefits as well as alternative therapies, the patient elected to proceed with angiogram and angioplasty. The right radial area was prepped and draped in normal sterile fashion. Right radial artery was cannulated via modified Seldinger technique with placement of 6-Mauritian sheath. All catheters exchanged through this sheath. FINDINGS: The circumflex has 90% stenosis proximally. This was addressed with a 3.5 x 18 mm Ruben. Result was 0% residual stenosis. PTCA STENT OF THE RCA: RCA had 2 areas of 90% stenosis distally. This was addressed with a 2.5 x 18 and 2.25 x 12 both stents. Result was 0% residual stenosis. OVERALL IMPRESSION: Successful percutaneous transluminal coronary angioplasty stent of the right coronary artery and left circumflex, both going from 90% initial stenosis to 0% residual. TRANSINT:[id number] Voice Confirmation ID: [id number] DOCUMENT ID: [id number] FRANCY TORO MD CC: [id number] DICTATION DATE: 01/07/19 1119 WELLNESS COACH: 01/07/19 1207 [facility] [address] [place] [address]
--- NOTE | ~2019-01-07 | HEMODYNAMI ---
PATIENT:NICA OHARA MEDICAL RECORD: [id number] : 50 LOCATION:D.CAT ADMISSION DATE: 01/07/19 Generatedon:01/07/201911:20 Patient name: NICA OHARA Patient #: [id number] SSN: : 1950 Date of study: 01/07/2019 Page: Of Hemodynamic Procedure Report Patient Data Patient Demographics Procedure consent was obtained First Name: NICA Gender: Male Last Name: LEV : 1950 [facility] Initial: L Age: 68 year(s) Patient #: [id number] Race: Unknown Additional ID: [id number] Contact details Address: [address] [place] [address] ROAD State: [place] City: [place] Zip code: [address] Past Medical History Allergies Allergen Reaction Date Comments Reported Other allergy 01/02/2019 IODINATED CONTRAST Other allergy 01/07/2019 Iodine Admission Admission Data Admission Date: 01/07/2019 Admission Time: 9:14 Height (in.): 70.87 BSA: 2.2 (m2) Height (cm.): 180 BMI: 30.86 (kg/m2) Weight (lbs.): 220.46 Weight (kg.): 100 Lab Results Lab Result Date: 01/02/2019 Lab Result Time: 0:00 Biochemistry Name Units Result Min Max BUN mg/dl 37 --(----)-* 7 18 Creatinine mg/dl 2.4 --(----)-* 0.6 1.3 eGFR ml/min 29 *-(----)-- 90 120 NONAFRICAN CBC Name Units Result Min Max Hematocrit % 38.4 *-(----)-- 42 54 Hemoglobin g/dl 13 -*(----)-- 13.5 17.5 Procedure Procedure Types Cath Procedure Diagnostic Procedure Sedation Charges Moderate Sedation up to 15 minutes Moderate Sedation up to 30 minutes PCI Procedure Coronary Stent Coronary Stent Initial x2 Coronary Stent Additional Procedure Description Procedure Date Procedure Date: 01/07/2019 Procedure Start Time: 11:03 Procedure End Time: 11:19 Procedure Staff Name Function Noble Naylor MD Performing Physician Eda Daniels RT Monitor Kathi Patel RN Nurse Roz Donald RT Scrub Procedure Data Cath Procedure Fluoroscopy Diagnostic fluoroscopy Total fluoroscopy Time: 4.4 time: 4.4 min min Diagnostic fluoroscopy Total fluoroscopy dose: 502 dose: 502 mGy mGy Contrast Material Contrast Material Type Amount (ml) Isovue 300 67 Entry Location Entry Primary Successful Side Size Upsize Upsize Entry Closure Vasquez ccessful Closure Location (Fr) 1 (Fr) 2 (Fr) Remarks Device Remarks Radial Right 6 Fr Mechanical artery Short Compression Estimated blood loss: 10 ml Procedure Complications No complications Procedure Medications Medication Administration Route Dosage 0.9% NaCl I.V. 100 ml/hr Oxygen etCO2 Nasal cannula 2 l/min Lidocaine 2% added to field 20 Heparin Flush Bag added to field 2 bags (1000units/500ml NS) Radial Cocktail added to field 1 syringe (Verapamil 2mg/Nitro 400mcg/Heparin 1500units) Versed I.V. 2 mg Fentanyl I.V. 50 mcg Fentanyl I.V. 50 mcg Heparin Bolus I.V. 4000 units Hemodynamics Rest BSA: 2.2 (m2) O2 Consumption: Estimated: 253.02 (ml/min) O2 Consumption indexed: Estimated:115.01 (ml/min/m) Heart Rate: 67 (bpm) Snapshots Pre Cath Intra NCS Post Cath Vital Signs Time Heart Resp SPO2 etCO2 NIBP (mmHg) Rhythm Pain Sedation Rate (ipm) (%) (mmHg) Status Level (bpm) 10:40:05 87 20 98 30 179/97(145) NSR 0 (11) 10(A) , No pain 10:44:30 83 16 98 29.2 168/95(138) NSR 0 (11) 10(A) , No pain 10:48:48 86 11 96 30.7 155/98(128) NSR 0 (11) 10(A) , No pain 10:53:04 82 12 98 29.9 148/96(127) NSR 0 (11) 10(A) , No pain 10:57:18 83 14 98 32.2 150/92(119) NSR 0 (11) 10(A) , No pain 11:01:38 82 13 98 31.4 152/94(129) NSR 0 (11) 10(A) , No pain 11:05:58 87 14 97 20.9 170/93(131) NSR 0 (11) 9(A) , No pain 11:10:08 86 18 98 29.2 138/85(99) NSR 0 (11) 9(A) , No pain 11:14:22 85 15 98 30.7 147/88(113) NSR 0 (11) 10(A) , No pain 11:18:38 87 13 97 32.9 151/93(123) NSR 0 (11) 10(A) , No pain Medications Time Medication Route Dose Verified Delivered Reason Not es Effectiveness by by 10:43:20 0.9% NaCl I.V. 100 Noble Katih used for ml/hr Cyndy Patel plant scientist 10:43:27 Oxygen etCO2 2 l/min Noble Kathi used for Nasal Cyndy Patel procedure cannula RN 10:43:32 Lidocaine 2% added 20ml Noble Noble for local to vial Cyndy Naylor MD anesthetic field 10:43:37 Heparin Flush added 2 bags Noble Noble used for Bag to Cyndy Naylor MD procedure (1000units/500ml field NS) 10:43:41 Radial Cocktail added 1 Noble Noble used for (Verapamil to syringe Cyndy Naylor MD procedure 2mg/Nitro field 400mcg/Heparin 1500units) 10:46:55 Versed I.V. 2 mg Nobel Kathi for sedation Cyndy Patel RN 10:47:00 Fentanyl I.V. 50 mcg Noble Kathi for sedation Cyndy Patel RN 11:02:02 Fentanyl I.V. 50 mcg Noble Kathi for sedation Cyndy Patel RN 11:07:06 Heparin Bolus I.V. 4000 Noble Kathi for annia ified units Cyndy Patel anticoagulation with Dr. SRI Naylor Procedure Log Time Note 10:32:46 Patient Height : 70.87 inches 10:32:49 Patient Weight : 220.46 lbs 10:33:33 Diagnostic Cath status Elective 10:33:35 Kathi Patel RN sent for patient. Start room use. 10:33:36 Time tracking: Regular hours (M-F 7:00 - 5:00) 10:33:47 Plan of Care:Hemodynamics will remain stable., Cardiac rhythm will remain stable., Comfort level will be maintained., Respiratory function will remain adequate., Patient/ family verbilizes understanding of procedure., Procedure tolerated without complication., Recovers from procedure without complications.. 10:33:54 Patient received from Med II to CCL 1 Alert and oriented. Tansferred to table in Supine position. 10:33:56 Warm blankets applied, and chase hugger turned on for patient comfort. 10:33:57 Correct patient and procedure confirmed by team. 10:33:59 Signed procedure consent form obtained from patient. 10:34:18 H&P Date Dictated: 01/07/2019 Within 30 days and on chart.. 10:34:20 Pre-procedure instructions explained to patient. 10:34:22 Family in waiting room. 10:34:23 Patient NPO since Midnight. 10:34:46 Patient allergic to Other allergyIodine 10:34:48 Is the patient allergic to Iodine/contrast media? Yes. 10:34:49 Was the patient premedicated? Yes 10:38:47 Vital chart was started 10:43:20 0.9% NaCl 100 ml/hr I.V. was administered by Kathi Patel RN; used for procedure; 10:43:27 Oxygen 2 l/min etCO2 Nasal cannula was administered by Kathi Patel RN; used for procedure; 10:43:32 Lidocaine 2% 20ml vial added to field was administered by Noble Naylor MD; for local anesthetic; 10:43:37 Heparin Flush Bag (1000units/500ml NS) 2 bags added to field was administered by Noble Naylor MD; used for procedure; 10:43:41 Radial Cocktail (Verapamil 2mg/Nitro 400mcg/Heparin 1500units) 1 syringe added to field was administered by Noble Naylor MD; used for procedure; 10:44:37 Is patient on blood thinner?Yes 10:44:42 ACC The patient was administered the following blood thiners within the last 24 hours: ACCPlavix 10:45:03 Patient diabetic? No. 10:45:09 Snore? Yes 10:45:11 Sleep apnea? No 10:45:18 Dentures? No ? 10:45:27 Pre procedure: right dorsailis pedis pulse 2+ Normal; easily identifiable; not easily obliterated 10:45:32 Patient pain scale 0/10 ?. 10:45:39 IV patent on arrival in left forearm with 0.9% NaCl at O. 10:45:47 Right Radial & Right Groin area was prepped with chlora-prep and draped in sterile fashion 10:45:48 Alarms reviewed by R. N. 10:45:48 Sharps counted by scrub and verified by R.N. 10:45:49 Physician paged 10:45:51 --------ALL STOP TIME OUT------ 10:45:56 Final Timeout: patient, procedure, and site verified with staff and physician. All members of the team are in agreement. 10:45:58 Right Radial & Right Groin site verified by team. 10:46:02 Fire Safety Assessment: A--An alcohol-based skin anteseptic being used preoperatively., C--Open oxygen or nitrous oxide is being used., D--An ESU, laser, or fiber-optic light is being used. 10:46:41 4) 1529 Jessica reduced kidney function. 10:46:55 Versed 2 mg I.V. was administered by Kathi Patel RN; for sedation; 10:47:00 Fentanyl 50 mcg I.V. was administered by Kathi Patel RN; for sedation; 10:47:50 Maximum allowable contrast does (3.7 X eGFR X 0.75)80 ml. 10:47:56 Sedation plan: IV Moderate Sedation Medication:Versed, Fentanyl 10:48:06 Use device set Radial Dx or PCI 10:50:29 ACIST Syringe (39292) opened to sterile field. 10:50:30 Medline Cath Pack ([id number]) opened to sterile field. 10:50:31 Bag Decanter () opened to sterile field. 10:50:31 ACIST Hand Control (13856) opened to sterile field. 10:50:32 ACIST Manifold (22217) opened to sterile field. 10:50:33 Tegaderm 4 x 4 (1626W) opened to sterile field. 10:50:34 MBrace Wrist Support ([id number]) opened to sterile field. 10:50:42 SHEATH 6FR Slender (80-1060) opened to sterile field. 10:50:43 EMERALD Guide Wire (502-863) opened to sterile field. 10:50:56 GUIDE 6FR XBLAD 4.0 catheter (83853181) opened to sterile field. 10:57:36 Baseline sample Acquired. 10:57:43 ECG and BP/O2 sat monitors applied to patient. 10:57:51 Full Disclosure recording started 11:02:02 Fentanyl 50 mcg I.V. was administered by Kathi Patel RN; for sedation; 11:03:54 Procedure started. 11:03:59 Local anesthetic to right radial artery with Lidocaine 2% by Noble Naylor MD.INITIAL ACCESS ONLY 11:04:15 A 6 Fr Short sheath was inserted into the Right Radial artery 11:05:50 INFLATOR Merit BasixCompak (FR3242) opened to sterile field. 11:06:30 CHOICE PT Extra Support 182cm wire ([id number]) opened to sterile field. 11:06:41 6 Fr XBLAD4 guide catheter was inserted over the wire 11:06:52 choice pt ex wire advanced. 11:07:06 Heparin Bolus 4000 units I.V. was administered by Kathi Patel RN; for anticoagulation; verified with Dr. Naylor 11:09:23 Place stent Inflation Number: 1 A KAYLEY RX 3.5 x 18 stent ([id number]) was prepped and advanced across the Prox CX 90. The stent was deployed at 17 HELLEN for 0:08 (min:sec) . 11:09:58 Guide catheter removed. 11:10:13 GUIDE 6FR AR 2.0 SH catheter ([id number]) opened to sterile field. 11:10:25 6 Fr AR2SH guide catheter was inserted over the wire 11:10:36 Wire redirected to RCA. 11:14:15 Place stent Inflation Number: 1 A KAYLEY RX 2.25 x 12 stent ([id number]) was prepped and advanced across the R PAV 90. The stent was deployed at 15 HELLEN for 0:10 (min:sec) . 11:15:47 Place stent Inflation Number: 1 A KAYLEY RX 2.5 x 18 stent ([id number]) was prepped and advanced across the Dist RCA 90. The stent was deployed at 13 HELLEN for 0:14 (min:sec) . 11:15:59 Wire removed. 11:16:01 Guide catheter removed. 11:16:07 TR BAND Standard ([id number]) opened to sterile field. 11:16:24 Sheath removed intact; hemostasis achieved with Mechanical Compression to the Right Radial artery. 11:16:30 Procedure ended.(Physican Out) 11:16:47 Fluoroscopy time 04.40 minutes. 11:17:13 Fluoroscopy dose: 502 mGy 11:17:13 Flurop Dose total: 502 11:17:17 Contrast amount:Isovue 300 67ml. 11:17:19 Sharps counted by scrub and verified by R.N. 11:17:23 TR band inflated with 10cc of air. 11:17:25 Insertion/operative site no bleeding no hematoma. 11:17:27 Post Procedure Pulses reassessed and unchanged 11:17:32 Post-procedure physical assessment completed. ASA score P 2 - A patient with mild systemic disease as per Noble Naylor MD. 11:18:13 Post procedure rhythm: unchanged. 11:18:16 Estimated blood loss: 10 ml 11:18:18 Post procedure instruction explained to patient.Patient verbalizes understanding. 11:19:09 Procedure type changed to Cath procedure, Diagnostic procedure, Sedation Charges, Moderate Sedation up to 15 minutes, Moderate Sedation up to 30 minutes, PCI procedure, Coronary Stent, Coronary Stent Initial x2, Coronary Stent Additional 11:19:11 Procedure and supply charges have been captured, reviewed, submitted and are correct. 11:19:45 Procedure Complication : No complications 11:19:47 Vital chart was stopped 11:19:48 See physician's report for complete and final results. 11:19:50 Report given to Pre/Post Procedure Room. 11:19:53 Patient transfered to Pre/Post Procedure Room with Stretcher. 11:19:55 Procedure ended. 11:19:55 Full Disclosure recording stopped 11:20:01 End room use (Document Last) Intervention Summary Intervention Notes Time ActionType Lesion and Equipment Used Action# Pressure Duration Attributes 11:09:23 Place stent Prox CX KAYLEY RX 3.5 x 1 17 00:08 18 stent ([id number]) 11:14:15 Place stent R PAV KAYLEY RX 2.25 x 1 15 00:10 12 stent ([id number]) 11:15:47 Place stent Dist RCA KAYLEY RX 2.5 x 1 13 00:14 18 stent ([id number]) Device Usage Item Name Manufacture Quantity Catalog Number Hospital Part Current M inimal Lot# / Charge Number Stock Stock Serial# Code ACIST Syringe Acist 1 60569 815979 521935 090132 2 0 (71369) Medical Systems Inc Medline Cath Medline 1 [id number] 579231 06710 261722 5 Pack ([id number]) Bag Decanter Microtek 1 2001S 349231 51835 665590 5 (2001S) Medical Inc. ACIST Hand Acist 1 03929 000135 258854 670097 5 Control Medical (20253) Systems Inc ACIST Manifold Acist 1 60144 519251 702213 310239 5 (24289) Medical Systems Inc Tegaderm 4 x 4 3M 1 1626W 228043 570125 654537 5 (1626W) MBrace Wrist Advanced 1 140-0250-00 684446 99353 850332 5 Support Vascular ([id number]) Dynamics SHEATH 6FR Terumo 1 [id number] 803079 974270 547007 5 Slender (80-1060) EMERALD Guide Cardinal 1 502-455 923848 397197 280872 5 Wire (502-455) Health GUIDE 6FR Cardinal 1 [id number] 825547 278800 956120 3 XBLAD 4.0 Health catheter (30825346) INFLATOR Merit Merit 1 NJ8594 869532 125100 893016 1 5 Yumm.comJoint venture between [facility] and [facility] (BQ9072) CHOICE PT [place] 1 [id number] 547281 592443 413132 5 Extra Support Scientific 182cm wire ([id number]) KAYLEY RX 3.5 x Medtronic 1 [id number] 432813 6355837 088404 5 [id number] 18 stent ([id number]) GUIDE 6FR AR Medtronic 1 [id number] 485997 40158 157172 1 2.0 SH catheter ([id number]) KAYLEY RX 2.25 x Medtronic 1 [id number] 216678 5560980 246387 5 [id number] 12 stent ([id number]) KAYLEY RX 2.5 x Medtronic 1 [id number] 148658 3833316 076575 5 [id number] 18 stent ([id number]) TR BAND Terumo 1 [id number] 391056 440848 727874 4 0 Standard ([id number]) Signature Audit [place] Stage Time Signature Unsigned Intra-Procedure 01/07/2019 Eda Daniels 11:20:41 AM RT(R) Signatures Monitor : Eda Daniels Signature : RT Date : Time : [place] [id number] [place] [address]
[~2019-01-07 09:14] MED LIST changes: +ANDROGEL5 GM TP; +FLOMAX0.4 MG PO
[2019-01-07] MEDS ORDERED: PREDNISONE20 MG PO (09:32)
[2019-01-07] MEDS ORDERED: NORVASC5 MG PO (09:33)
[2019-01-07] MEDS ORDERED: PLAVIX75 MG PO (09:33)
[2019-01-07] MEDS ORDERED: PRAVACHOL40 MG PO (09:34)
[2019-01-07 09:42] VITALS: BP 171/95; Ht 180.3 cm; Wt 100.0 kg
[2019-01-07 10:01] LABS: BASOPHILS 0 % (0-2); EOSINOPHILS 0 % (0-7); HEMATOCRIT 38.8 % (42.0-54.0); HEMOGLOBIN 13.5 g/dL (13.5-17.5); IMMATURE GRANULOCYTES 0.4 % (0-5); LYMPHOCYTES 7.8 % (15-50); MCH 30.6 pg (26.0-34.0); MCHC 34.8 g/dL (31.0-37.0); MEAN PLATELET VOLUME 10.8 fL (7.4-10.4); MONOCYTES 3.7 % (2-11); NEUTROPHILS 88.1 % (40-80); PLATELET COUNT 188 10x3/uL (130-400); RBC 4.41 10x6/uL (4.20-6.10); RDW 13.5 % (11.5-14.5); WBC 9.2 10x3/uL (4.8-10.8)
[2019-01-07 10:05] LABS: ANION GAP 16.9 mmol/L (8-16); CALCIUM 9.8 mg/dL (8.5-10.1); CARBON DIOXIDE 21.9 mmol/L (21.0-32.0); CREATININE - SERUM 2.4 mg/dL (0.6-1.3); POTASSIUM - SERUM 4.8 mmol/L (3.5-5.1)
--- NOTE | 2019-01-07 11:40 | NUR ---
2L NC, NO RESP DISTRESS. RIGHT WRIST TR BAND CDI, NO BLEEDING OR HEMATOMA NOTED. NO C/O PAIN OR NAUSEA. VSS. FAMILY AT BEDSIDE, CALL LIGHT WITHIN REACH.
--- NOTE | 2019-01-07 12:10 | NUR ---
SPEAKING WITH FAMILY AT BEDSIDE. RIGHT WRIST TR BAND CDI, NO BLEEDING OR HEMATOMA NOTED. 2L NC WITH NO RESP DISTRESS. DENIES ANY NEEDS. VSS. WILL CONTINUE TO MONITOR.
--- NOTE | 2019-01-07 12:25 | NUR ---
SIPPING ON DRINK AND EATING SANDWICH WITH NO C/O NAUSEA. RIGHT WRIST TR BAND CDI, NO BLEEDING NOTED. NO NEEDS VOICED. VSS. CALL LIGHT WITHIN REACH.
--- NOTE | 2019-01-07 12:55 | NUR ---
RESTING QUIETLY WITH EYES CLOSED. RIGHT WRIST TR BAND CDI, NO BLEEDING OR HEMATOMA NOTED. 2L NC WITH NO RESP DISTRESS. DENIES ANY NEEDS. VSS. WILL CONTINUE TO MONITOR.
--- NOTE | 2019-01-07 13:25 | NUR ---
RESTING COMFORTABLY WITH NO C/O. RIGHT WRIST TR BAND CDI, NO BLEEDING OR HEMATOMA NOTED. DENIES ANY NEEDS AT THIS TIME. VSS. CALL LIGHT WITHIN REACH.
--- NOTE | 2019-01-07 14:20 | NUR ---
4CC OF AIR REMOVED FROM TR BAND WITH NO BLEEDING NOTED. VSS. WILL CONTINUE TO MONITOR CLOSELY.
--- NOTE | 2019-01-07 14:35 | NUR ---
3CC OF AIR REMOVED FROM TR BAND WITH NO BLEEDING NOTED.
--- NOTE | 2019-01-07 14:50 | NUR ---
LEFT PIV D/C'D WITH CATHETER INTACT, BAND AID TO SITE. UP TO BEDSIDE TO GET DRESSED. AMBULATED TO RESTROOM.
--- NOTE | 2019-01-07 15:00 | NUR ---
REMAINING AIR REMOVED FROM TR BAND WITH NO BLEEDING NOTED. DRESSING PLACED TO SITE. DISCHARGE INSTRUCTIONS GIVEN TO PT AND , BOTH VERBALIZED UNDERSTANDING.
--- NOTE | 2019-01-07 15:15 | NUR ---
TAKEN OUT VIA WHEELCHAIR BY CATH PROJECT TECHNICIAN. LEFT FACILITY WITH FAMILY AND ALL PERSONAL BELONGINGS.
== END 2019-01-07 15:15 | disposition home or self-care (01) ==
LOC: D.CATH 09:14
PROVIDERS: ATTEND Internal Medicine Interventional Cardiology
DX: I21.4 Non-ST elevation (NSTEMI) myocardial infarction (principal); I25.119 Atherosclerotic heart disease of native coronary artery with unspecified angina pectoris; Z01.812 Encounter for preprocedural laboratory examination

== ENCOUNTER → 2019-05-06 14:04 | Outpatient (CLI) | payer BC, MEDICARE ==
[2019-01-07 09:42] VITALS: BMI 30.7
[~2019-05-06 14:04] MED LIST changes: +NORVASC5 MG PO; +PLAVIX75 MG PO; +PRAVACHOL40 MG PO; +PREDNISONE20 MG PO
[2019-05-06 15:02] LABS: BASOPHILS 0.3 % (0-2); EOSINOPHILS 2.7 % (0-7); HEMATOCRIT 38.1 % (42.0-54.0); HEMOGLOBIN 12.9 g/dL (13.5-17.5); LYMPHOCYTES 22.1 % (15-50); MCH 31.4 pg (26.0-34.0); MCHC 33.9 g/dL (31.0-37.0); MCV 92.7 fL (80.0-100.0); MEAN PLATELET VOLUME 10.5 fL (7.4-10.4); MONOCYTES 10.9 % (2-11); PLATELET COUNT 162 10x3/uL (130-400); RBC 4.11 10x6/uL (4.20-6.10); RDW 12.8 % (11.5-14.5)
[2019-05-06 15:12] LABS: CREATININE - URINE 94.5 mg/dL (30-125); PRO/CRE RATIO URINE 0.2 mg/g; PROTEIN - URINE 16.8 mg/dL (0.0-11.9)
[2019-05-06 15:26] LABS: COMPLEMENT C4 31.7 mg/dL (17.4-52.2)
[2019-05-06 15:46] LABS: ALBUMIN 3.8 g/dL (3.4-5.0); ANION GAP 12.4 mmol/L (8-16); BILIRUBIN - TOTAL 0.28 mg/dL (0.2-1.3); CALCIUM 9.4 mg/dL (8.5-10.1); CARBON DIOXIDE 27.6 mmol/L (21.0-32.0); CREATININE - SERUM 2.7 mg/dL (0.6-1.3); PROTEIN - SERUM 7.1 g/dL (6.4-8.2); URIC ACID 6.8 mg/dL (2.6-7.2)
[2019-05-07 14:09] LABS: UPE RAND - ALBUMIN 47.2 % (()); UPE RAND - ALPHA 1 GLOBULIN 10.2 % (()); UPE RAND - ALPHA 2 GLOBULIN 14.8 % (()); UPE RAND - BETA GLOBULIN 7.1 % (()); UPE RAND - GAMMA GLOBULIN 20.7 % (())
[2019-05-07 15:10] LABS: SPE - A/G RATIO 1.3 (0.7-1.7); SPE - ALBUMIN 3.8 g/dL (2.9-4.4); SPE - ALPHA-1 GLOBULIN 0.2 g/dL (0.0-0.4); SPE - ALPHA-2 GLOBULIN 0.8 g/dL (0.4-1.0); SPE - BETA GLOBULIN 1.2 g/dL (0.7-1.3); SPE - GAMMA GLOBULIN 0.7 g/dL (0.4-1.8); SPE - M-SPIKE Not Observed g/dL (Not Observed); SPE - TOTAL PROTEIN 6.7 g/dL (6.0-8.5)
[2019-05-08 07:14] LABS: ANA REFLEX - DIRECT Negative (Negative)
[2019-05-08 15:10] LABS: ANCA - ANTIMYELOPEROXIDASE <9.0 U/mL (0.0-9.0); ANCA - ANTIPROTEINASE 3 <3.5 U/mL (0.0-3.5); ANCA - ATYPICAL <1:20 titer (Neg:<1:20); ANCA - CYTOPLASMIC <1:20 titer (Neg:<1:20); ANCA - PERINUCLEAR <1:20 titer (Neg:<1:20)
== END | disposition home or self-care (01) ==
LOC: D.US 14:04
PROVIDERS: ATTEND Internal Medicine Nephrology
DX: E11.22 Type 2 diabetes mellitus with diabetic chronic kidney disease (principal); N18.3 Chronic kidney disease, stage 3 (moderate); Z68.32 Body mass index [BMI] 32.0-32.9, adult; E78.2 Mixed hyperlipidemia